=== PATIENT | female | born 1980 | race Caucasian/White ===

== ENCOUNTER 2016-11-15 12:03 | Emergency (ER) | payer OTHER | END 2016-11-15 13:45 | disposition home or self-care (01) | LOC: FER 12:03 | DX: M75.21 Bicipital tendinitis, right shoulder (principal); I10 Essential (primary) hypertension; F17.210 Nicotine dependence, cigarettes, uncomplicated; Z79.899 Other long term (current) drug therapy | CPT/HCPCS: 73030; J1885 ==

== ENCOUNTER 2016-12-28 10:12 | Emergency (ER) | payer OTHER | END 2016-12-28 10:57 | disposition home or self-care (01) | LOC: FER 10:12 | DX: M77.9 Enthesopathy, unspecified (principal); F17.210 Nicotine dependence, cigarettes, uncomplicated; X50.1XXA Overexertion from prolonged static or awkward postures, initial encounter; Y92.009 Unspecified place in unspecified non-institutional (private) residence as the place of occurrence of the external cause | CPT/HCPCS: 73110; 99283 ==

== ENCOUNTER 2020-07-22 00:29 | Emergency (ER) | payer OTHER ==
[~2020-07-22 00:29] MED LIST: LIPITOR10 MG PO; LISINOPRIL 10MG10 MG PO; MOBIC7.5 MG PO; PEPCID AC20 MG PO; PERCOCET 5-3251 EACH PO; PREDNISONE 10MG10 MG PO
[2020-07-22 01:05] LABS: BASOPHIL 0.6 % (0-2); HCT 37.9 % (37.0-47.0); HGB 12.4 g/dl (12.5-16.0); LYMPHOCYTE 36.7 % (15-48); MCH 30.8 pg (25.0-31.0); MCHC 32.7 g/dL (32.0-36.0); MCV 94.3 fL (78.0-100.0); MONOCYTE 6.2 % (0-12); MPV 10.9 fL (6.0-9.5); NEUTROPHIL 54.2 % (41-80); NRBC 0; PLT 231 K/uL (150-400); RBC 4.02 M/uL (4.20-5.40); RDW 13.7 % (11.5-14.0); WBC 8.9 K/uL (4.0-10.5)
[2020-07-22 01:23] LABS: ALBUMIN 3.3 g/dL (3.4-5.0); BILIRUBIN - TOTAL 0.1 mg/dL (0.2-1.0); BUN/CREAT RATIO (CALC) 15.5 RATIO; CREATININE 0.71 mg/dL (0.51-0.95); GLOBULIN (CALCULATION) 3.7 g/dL; POTASSIUM 3.7 mmol/L (3.5-5.1)
[2020-07-22] MEDS ORDERED: CEFDINIR300 MG PO (04:25)
== END 2020-07-22 04:40 | disposition home or self-care (01) ==
LOC: FER 00:29
PROVIDERS: Emergency Medicine
DX: R07.9 Chest pain, unspecified (principal); M79.602 Pain in left arm; R91.8 Other nonspecific abnormal finding of lung field; J44.9 Chronic obstructive pulmonary disease, unspecified; F17.200 Nicotine dependence, unspecified, uncomplicated
CPT/HCPCS: 36415; 71045; 71275; 80053; 84484; 85025; 85379; 93005; Q9967

== ENCOUNTER 2020-08-03 11:49 | Emergency (ER) | payer OTHER ==
[~2020-08-03 11:49] MED LIST changes: +CEFDINIR300 MG PO
[2020-08-03] MEDS ORDERED: BACLOFEN 10MG T10 MG PO (14:43)
[2020-08-03] MEDS ORDERED: MEDROL 4MG DOSEP4 MG PO (14:43)
== END 2020-08-03 15:15 | disposition home or self-care (01) ==
LOC: FER 11:49
DX: M54.42 Lumbago with sciatica, left side (principal); F17.210 Nicotine dependence, cigarettes, uncomplicated
CPT/HCPCS: 96372; J1100; J1885

== ENCOUNTER 2020-08-28 10:32 | Emergency (ER) | payer OTHER ==
[~2020-08-28 10:32] MED LIST changes: +BACLOFEN 10MG T10 MG PO; +MEDROL 4MG DOSEP4 MG PO
[2020-08-28] MEDS ORDERED: NORCO 5-325 TA1 EACH PO ×2 (12:46→14:02)
== END 2020-08-28 13:10 | disposition home or self-care (01) ==
LOC: FER 10:32
DX: M84.374A Stress fracture, right foot, initial encounter for fracture (principal); F17.210 Nicotine dependence, cigarettes, uncomplicated; X50.1XXA Overexertion from prolonged static or awkward postures, initial encounter; Y92.009 Unspecified place in unspecified non-institutional (private) residence as the place of occurrence of the external cause
CPT/HCPCS: 73630

== ENCOUNTER 2020-10-05 09:18 | Emergency (ER) | payer OTHER ==
[~2020-10-05 09:18] MED LIST changes: +NORCO 5-325 TA1 EACH PO
== END 2020-10-05 11:00 | disposition home or self-care (01) ==
LOC: FER 09:18
DX: S93.621A Sprain of tarsometatarsal ligament of right foot, initial encounter (principal); I10 Essential (primary) hypertension; W01.0XXA Fall on same level from slipping, tripping and stumbling without subsequent striking against object, initial encounter; Y92.009 Unspecified place in unspecified non-institutional (private) residence as the place of occurrence of the external cause
CPT/HCPCS: 73630

== ENCOUNTER 2020-11-01 14:04 | Emergency (ER) | payer OTHER ==
[2020-11-01 15:20] LABS: BASOPHIL 0.5 % (0-2); EOSINOPHIL 0.5 % (0-5); HCT 40.7 % (37.0-47.0); HGB 13.8 g/dl (12.5-16.0); LYMPHOCYTE 23.4 % (15-48); MCH 31.2 pg (25.0-31.0); MCHC 33.9 g/dL (32.0-36.0); MCV 92.1 fL (78.0-100.0); MONOCYTE 7.9 % (0-12); MPV 10.6 fL (6.0-9.5); NEUTROPHIL 66.5 % (41-80); NRBC 0; PLT 214 K/uL (150-400); RBC 4.42 M/uL (4.20-5.40); WBC 9.5 K/uL (4.0-10.5)
[2020-11-01 15:26] LABS: BILIRUBIN NEGATIVE (NEGATIVE); BLOOD NEGATIVE Ery/uL (NEGATIVE); CLARITY CLEAR (CLEAR); COLOR YELLOW (YELLOW); GLUCOSE (U) NORMAL (NORMAL); LEUKOCYTES NEGATIVE Leu/uL (NEGATIVE); NITRITE NEGATIVE (NEGATIVE); PROTEIN NEGATIVE (NEGATIVE); UROBILINOGEN 0.2 mg/dL (0.2-1.0)
[2020-11-01 15:39] LABS: ALBUMIN 3.8 g/dL (3.4-5.0); BILIRUBIN - TOTAL 0.3 mg/dL (0.2-1.0); BUN/CREAT RATIO (CALC) 25.8 RATIO; CREATININE 0.62 mg/dL (0.51-0.95); GLOBULIN (CALCULATION) 3.6 g/dL; POTASSIUM 3.9 mmol/L (3.5-5.1); TOTAL PROTEIN 7.4 g/dL (6.4-8.2)
[2020-11-01] MEDS ORDERED: BACLOFEN 10MG T10 MG PO (17:08)
== END 2020-11-01 17:20 | disposition home or self-care (01) ==
LOC: FER 14:04
PROVIDERS: Nurse Practitioner Family
DX: R10.31 Right lower quadrant pain (principal); R11.0 Nausea; F17.210 Nicotine dependence, cigarettes, uncomplicated; Z98.890 Other specified postprocedural states; Z98.51 Tubal ligation status
CPT/HCPCS: 36415; 80053; 81003; 82150; 83690; 85025; J2270; J2405; J7030; Q9967

== ENCOUNTER 2020-12-05 10:23 | Emergency (ER) | payer OTHER ==
[2020-12-05] MEDS ORDERED: MEDROL 4MG DOSEP4 MG PO (12:40)
[2020-12-05] MEDS ORDERED: NORCO 5-325 TA1 EACH PO (12:40)
== END 2020-12-05 12:59 | disposition home or self-care (01) ==
LOC: FER 10:23
DX: S39.012A Strain of muscle, fascia and tendon of lower back, initial encounter (principal); S80.02XA Contusion of left knee, initial encounter; S70.02XA Contusion of left hip, initial encounter; I10 Essential (primary) hypertension; F17.210 Nicotine dependence, cigarettes, uncomplicated; Z79.899 Other long term (current) drug therapy; W22.8XXA Striking against or struck by other objects, initial encounter
CPT/HCPCS: 72100; 73502; 73564

== ENCOUNTER 2021-01-26 09:53 | Emergency (ER) | payer OTHER | END 2021-01-26 11:33 | disposition home or self-care (01) | LOC: FER 09:53 | DX: S63.501A Unspecified sprain of right wrist, initial encounter (principal); I10 Essential (primary) hypertension; F17.210 Nicotine dependence, cigarettes, uncomplicated; X58.XXXA Exposure to other specified factors, initial encounter; Y99.0 Civilian activity done for income or pay; Y92.89 Other specified places as the place of occurrence of the external cause; Z79.899 Other long term (current) drug therapy | CPT/HCPCS: 73130; J1885 ==

== ENCOUNTER 2021-02-22 13:21 | Emergency (ER) | payer OTHER ==
[2021-02-22 14:53] LABS: BASOPHIL 0.5 % (0-2); EOSINOPHIL 1.4 % (0-5); HGB 12.7 g/dl (12.5-16.0); LYMPHOCYTE 14.1 % (15-48); MCHC 32.6 g/dL (32.0-36.0); MCV 95.1 fL (78.0-100.0); MONOCYTE 6.7 % (0-12); MPV 11.1 fL (6.0-9.5); NEUTROPHIL 76.9 % (41-80); NRBC 0; PLT 211 K/uL (150-400); RDW 14.4 % (11.5-14.0); WBC 12.5 K/uL (4.0-10.5)
[2021-02-22 15:06] LABS: BUN/CREAT RATIO (CALC) 18.1 RATIO; CREATININE 0.72 mg/dL (0.51-0.95); POTASSIUM 3.9 mmol/L (3.5-5.1)
== END 2021-02-22 15:27 | disposition left against medical advice (07) ==
LOC: FER 13:21
PROVIDERS: Nurse Practitioner Family
DX: M25.511 Pain in right shoulder (principal); I10 Essential (primary) hypertension; Z53.29 Procedure and treatment not carried out because of patient's decision for other reasons
CPT/HCPCS: 36415; 71045; 80048; 85025; 90471; 90715; 96372; J1100; J1885

== ENCOUNTER 2021-02-28 14:46 | Emergency (ER) | payer OTHER ==
[2021-02-28] MEDS ORDERED: BACTRIM DS TAB1 EACH PO (16:58)
== END 2021-02-28 17:11 | disposition home or self-care (01) ==
LOC: FER 14:46
DX: S91.332A Puncture wound without foreign body, left foot, initial encounter (principal); M25.531 Pain in right wrist; I10 Essential (primary) hypertension; Z79.899 Other long term (current) drug therapy; W45.0XXA Nail entering through skin, initial encounter
CPT/HCPCS: 99283

== ENCOUNTER 2021-08-11 13:37 | Emergency (ER) | payer OTHER ==
[~2021-08-11 13:37] MED LIST changes: +BACTRIM DS TAB1 EACH PO
[2021-08-11] MEDS ORDERED: CYCLOBENZAPRINE10 MG PO (17:21)
[2021-08-11] MEDS ORDERED: PREDNISONE 20MG20 MG PO (17:21)
[2021-08-11] MEDS ORDERED: MOTRIN600 MG PO (17:21)
== END 2021-08-11 18:02 | disposition home or self-care (01) ==
LOC: FER 13:37
DX: M54.41 Lumbago with sciatica, right side (principal); I10 Essential (primary) hypertension; F17.210 Nicotine dependence, cigarettes, uncomplicated
CPT/HCPCS: 72100; J1885

== ENCOUNTER 2022-03-08 08:10 | Emergency (ER) | payer OTHER ==
[~2022-03-08 08:10] MED LIST changes: +CYCLOBENZAPRINE10 MG PO; +MOTRIN600 MG PO; +PREDNISONE 20MG20 MG PO
[2022-03-08 08:44] LABS: BASOPHIL 0.3 % (0-2); EOSINOPHIL 1.4 % (0-5); HCT 38.1 % (37.0-47.0); HGB 12.4 g/dl (12.5-16.0); LYMPHOCYTE 24.7 % (15-48); MCH 30.8 pg (25.0-31.0); MCHC 32.5 g/dL (32.0-36.0); MCV 94.8 fL (78.0-100.0); MPV 10.4 fL (6.0-9.5); NEUTROPHIL 66.3 % (41-80); NRBC 0; PLT 224 K/uL (150-400); RBC 4.02 M/uL (4.20-5.40); RDW 13.9 % (11.5-14.0); WBC 8.6 K/uL (4.0-10.5)
[2022-03-08 08:49] LABS: INR 0.96 (0.9-1.2); PROTHROMBIN TIME 12.5 SECONDS (11.9-13.9); PTT 26.8 SECONDS (24.9-34.6)
[2022-03-08 09:02] LABS: ALBUMIN 3.5 g/dL (3.4-5.0); ALKALINE PHOSHATASE 85 U/L (46-116); ALT 12 U/L (14-59); AST 30 U/L (15-37); BILIRUBIN - TOTAL 0.2 mg/dL (0.2-1.0); BUN 7 mg/dL (7-18); BUN/CREAT RATIO (CALC) 10.4 RATIO; CHLORIDE 102 mmol/L (98-107); CO2 (BICARBONATE) 29 mmol/L (21-32); CREATININE 0.67 mg/dL (0.51-0.95); GLOBULIN (CALCULATION) 3.8 g/dL; GLUCOSE 85 mg/dL (74-106); POTASSIUM 3.6 mmol/L (3.5-5.1); TOTAL PROTEIN 7.3 g/dL (6.4-8.2)
== END 2022-03-08 11:37 | disposition home or self-care (01) ==
LOC: FER 08:10
PROVIDERS: Surgery
DX: R07.89 Other chest pain (principal); I10 Essential (primary) hypertension; J45.909 Unspecified asthma, uncomplicated; Z28.310 Unvaccinated for COVID-19
CPT/HCPCS: 36415; 71045; 80053; 84484; 85025; 85610; 85730; 93005; J1885